=== PATIENT | male | born 1990 | race Caucasian/White ===

== ENCOUNTER 2019-12-21 10:45 | Emergency (ER) | payer SELFPAY ==
[~2019-12-21] VITALS: Ht 188 cm; Wt 79.0 kg
[2019-12-21 11:03] VITALS: BP 133/93
[2019-12-21] MEDS ORDERED: ACETAMINOPHEN 500 MG TABLET ONE (11:26)
[2019-12-21] MEDS ORDERED: IBUPROFEN 200 MG TABLET ONE (11:26)
[2019-12-21 11:52] LABS: RAPID INFLUENZA A Negative (Negative); RAPID INFLUENZA B Negative (Negative)
[2019-12-21] MEDS ORDERED: IBUPROFEN 800 MG TABLET PO ONE (12:00)
[2019-12-21] MEDS ORDERED: ACETAMINOPHEN 500 MG TABLET PO ONE (12:00)
== END 2019-12-21 12:36 | disposition home or self-care (01) ==
LOC: ED 12:30
DX: J06.9 Acute upper respiratory infection, unspecified (principal); F17.200 Nicotine dependence, unspecified, uncomplicated
CPT/HCPCS: 71046; 87400; 99284

== ENCOUNTER 2020-06-27 11:49 | Emergency (ER) | payer MEDICAID ==
[~2020-06-27] VITALS: Ht 188 cm; Wt 83.6 kg
--- NOTE | 2020-06-27 12:22 | NUR ---
Pt in gown, SpO2 adequate on RA. Wating for ERP. No oacute distress noted.
--- NOTE | 2020-06-27 13:01 | NUR ---
ERP at bedside, updated on POC. Waiting for Xray.
--- NOTE | 2020-06-27 13:06 | NUR ---
Pt to xray
--- NOTE | 2020-06-27 13:14 | NUR ---
Pt back from xray
[2020-06-27 13:44] VITALS: BP 118/77
--- NOTE | 2020-06-27 13:45 | NUR ---
Pt updated on POC. States "Im ready to leave". Explained that ERP will need to see pt again before dispo.
== END 2020-06-27 14:37 | disposition left against medical advice (07) ==
LOC: ED 12:30
DX: R06.00 Dyspnea, unspecified (principal); R07.89 Other chest pain
CPT/HCPCS: 71046; 99283